=== PATIENT | male | born 1990 | race Caucasian/White ===

== ENCOUNTER 2021-06-19 02:13 | Emergency (ER) | payer BC, MEDICAID ==
[2021-06-19] MEDS ORDERED: Sodium Chloride 0.9% 1,000 ML IV ONE (02:24)
--- NOTE | 2021-06-19 02:29 | EDM.PDOC ---
ED HPI GENERAL MEDICAL PROBLEM - General Chief Complaint: Trauma Stated Complaint: [facility] Time Seen by Provider: 06/19/21 02:13 Source of Information: Reports: Patient, EMS History Limitations: Reports: Intoxication - History of Present Illness INITIAL COMMENTS - FREE TEXT/NARRATIVE: A trauma alert was called for this patient. Mr. Russell is a very pleasant 31-year-old gentleman who is now brought to the ED by EMS after he was drinking excessively for much of the night, then fell off of a third story balcony onto grass around 01:40 this morning. The patient states that he remembers falling and landing, and does not believe that he was knocked unconscious. He immediately had pain in his lower back and pelvis. He had reported to EMS that the pain radiated down both of his lower extremities, more on the left than the right, but he denies that to me. He denies having any tingling or numbness, anywhere. EMS placed him on a backboard, placed on IV, and gave him 1 mg of IV Dilaudid en route to the ED. Here in the ED, the patient's initial BP was found low at 65/46, but soon yaneth to 116/77, without treatment. He is afebrile, saturating 100% on room air. If not moved, he appears to be relatively comfortable, although he complained bitterly of pain when logrolled to the left to get him off the backboard. The patient states that he tested positive for the SARS-CoV-2 virus on 06/04/2021. He reports that he had minimal symptoms. He denies having a recent fever, chills, sore throat, ear pain, nasal or sinus congestion, cough, dyspnea, chest pain, palpitations, nausea, vomiting, constipation, diarrhea, abdominal pain, urinary symptoms, recent weight gain or weight loss, recent bloody bowel movements or black bowel movements, recent joint aches, headaches, or rashes. The patient's PCP is Dr. Dion Morel. His medical marijuana card is per Dr. Mario Hewitt. He has not received a COVID vaccination. 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 [No Known Home Meds] 06/19/21 [History] Past Medical History Gastrointestinal History: Reports: GERD Psychiatric History: Reports: ADHD (untreated), Bipolar (untreated), OCD (untreated), PTSD (untreated) Endocrine/Metabolic History: Reports: Hypothyroidism (resolved), Obesity/BMI 30+ - Past Surgical History HEENT Surgical History: Reports: Tonsillectomy GI Surgical History: Reports: Appendectomy Social & Family History - Tobacco Use Years of Tobacco use: 13 Packs/Tins Daily: 1 Tobacco Use Comment: Started smoking 2007 - Alcohol Use Alcohol Use History: Yes Alcohol Use Frequency: Socially (occasionally to excess) - Recreational Drug Use Recreational Drug Use: Yes Drug Use in Last 12 Months: Yes Recreational Drug Type: Reports: Cocaine (last snorted January 2021), LSD (Acid) (last took May 2021), Marijuana/Hashish (smokes daily) - Living Situation & Occupation Living situation: Reports: , with Spouse Occupation: Employed ([employer]) Review of Systems - Review of Systems Review Of Systems: Comprehensive ROS is negative, except as noted in HPI. ED EXAM, GENERAL - Physical Exam Exam: See Below Exam Limited By: No Limitations General Appearance: Alert, WD/WN, Mild Distress (Mild discomfort if kept still) Eye Exam: Bilateral Eye: EOMI, Normal Inspection Ears: Normal External Exam, Hearing Grossly Normal Nose: Normal Inspection Throat/Mouth: Normal Inspection, Normal Lips, Normal Voice, No Airway Compromise Head: Atraumatic, Normocephalic Neck: Normal Inspection, Supple, Non-Tender, Full Range of Motion Respiratory/Chest: No Respiratory Distress, Lungs Clear, Normal Breath Sounds, No Accessory Muscle Use, Chest Non-Tender. No: Decreased Breath Sounds, Crackles, Rhonchi, Wheezing, Stridor, Prolonged Expiration Cardiovascular: Normal Peripheral Pulses, Regular Rate, Rhythm, No Edema, No Gallop, No JVD, No Murmur, No Rub Peripheral Pulses: 3+: Radial (L), Radial (R), Femoral (L), Femoral (R), Posterior Tibial (L), Posterior Tibial (R), Dorsalis Pedis (L), Dorsalis Pedis (R) GI/Abdominal: Soft, No Organomegaly, No Distention, No Abnormal Bruit, No Mass, Tender (across the lower abdomen, nontender elsewhere), Abnormal Bowel Sounds (diminished), Other (The patient complains of exquisite pain with palpation or compression of the pelvis) Back Exam: Other (No visible or palpable abnormalities to palpation of the spine when the patient was logrolled to the left, however, he complained of tenderness to palpation of the lower lumbar/sacral spine) Extremities: Normal Inspection, Normal Range of Motion, Non-Tender (including the bilateral thighs), No Pedal Edema, Normal Capillary Refill Neurological: Alert, Oriented, CN II-XII Intact, Normal Cognition, No Motor/Sensory Deficits Psychiatric: Normal Affect Skin Exam: Warm, Dry, Intact, Normal Color, No Rash #1 Interpretation EKG Date: 06/19/21 Time: 02:47 Rhythm: NSR Rate (Beats/Min): 98 [place]: Normal P-Wave: Present QRS: Normal ST-T: Normal QT: Normal Comparison: NA - No Prior EKG Course - Vital Signs Last Recorded V/S: Last Vital Signs Temp 35.8 C L 06/19/21 02:22 Pulse 106 H 06/19/21 03:35 Resp 18 06/19/21 03:35 BP 104/52 L 06/19/21 03:35 Pulse Ox 99 06/19/21 03:35 - Orders/Labs/Meds Orders: Active Orders 24 hr Category Date Time Status Insert Taylor Catheter [Insert Urinary Catheter] [OM.PC] Care 06/19/21 03:15 Ordered Q24H Urinary Catheter Assessment [RC] ASDIRECTED Care 06/19/21 03:02 Active Cervical Spine wo Cont [CT] Stat Exams 06/19/21 02:21 Taken Chest Abdomen Pelvis w Cont [CT] Stat Exams 06/19/21 02:21 Taken Femur Min 1V Lt [CR] Stat Exams 06/19/21 03:11 Taken Femur Min 1V Rt [CR] Routine Exams 06/19/21 Taken Head wo Cont [CT] Stat Exams 06/19/21 02:21 Taken Sodium Chloride 0.9% [Normal Saline] 1,000 ml Med 06/19/21 02:24 Active IV ONETIME Medication Orders Sodium Chloride (Normal Saline) 1,000 mls @ 125 mls/hr IV ONETIME ONE Stop: 06/19/21 10:23 Last Admin: 06/19/21 03:05 Dose: 125 mls/hr Documented by: ADELITA Labs: Laboratory Tests 06/19/21 06/19/21 06/19/21 Range/Units 02:25 02:25 02:25 WBC 14.17 H (4.23-9.07) K/mm3 RBC 4.92 (4.63-6.08) M/mm3 Hgb 15.7 (13.7-17.5) gm/dl Hct 44.2 (40.1-51.0) % MCV 89.8 (79.0-92.2) fl MCH 31.9 (25.7-32.2) pg MCHC 35.5 (32.2-35.5) g/dl RDW Std Deviation 42.5 (35.1-43.9) fL Plt Count 266 (163-337) K/mm3 MPV 9.8 (9.4-12.3) fl Neutrophils % (Manual) 69 H (40-60) % Band Neutrophils % 2 (0-10) % Lymphocytes % (Manual) 26 (20-40) % Atypical Lymphs % 0 % Monocytes % (Manual) 3 (2-10) % Eosinophils % (Manual) 0 L (0.8-7.0) % Basophils % (Manual) 0 L (0.2-1.2) Platelet Estimate Adequate RBC Morph Comment Normal PT 9.9 (9.7-12.0) SECONDS INR < 0.93 APTT 22.1 (21.7-31.4) SECONDS Sodium 137 (136-145) mEq/L Potassium 3.3 L (3.5-5.1) mEq/L Chloride 100 (98-107) mEq/L Carbon Dioxide 22 (21-32) mEq/L Anion Gap 18.3 H (5-15) BUN 9 (7-18) mg/dL Creatinine 1.7 H (0.7-1.3) mg/dL Est Cr Clr Drug Dosing 65.60 mL/min Estimated GFR (MDRD) 48 (>60) mL/min BUN/Creatinine Ratio 5.3 L (14-18) Glucose 123 H (70-99) mg/dL Calcium 8.3 L (8.5-10.1) mg/dL Total Bilirubin 0.5 (0.2-1.0) mg/dL AST 95 H (15-37) U/L ALT 115 H (16-63) U/L Alkaline Phosphatase 68 (46-116) U/L Creatine Kinase (39-308) U/L Total Protein 7.8 (6.4-8.2) g/dl Albumin 3.7 (3.4-5.0) g/dl Globulin 4.1 gm/dL Albumin/Globulin Ratio 0.9 L (1-2) Urine Color (Yellow) Urine Appearance (Clear) Urine pH (5.0-8.0) Ur Specific [place] (1.005-1.030) Urine Protein (Negative) Urine Glucose (UA) (Negative) Urine Ketones (Negative) Urine Occult Blood (Negative) Urine Nitrite (Negative) Urine Bilirubin (Negative) Urine Urobilinogen (0.2-1.0) Ur Leukocyte Esterase (Negative) Urine RBC (0-5) /hpf Urine WBC (0-5) /hpf Ur Squamous Epith Cells (0-5) /hpf Amorphous Sediment (NOT SEEN) /hpf Urine Bacteria (FEW) /hpf Urine Mucus (FEW) /hpf Urine Opiates Screen (WTDWYS=895) Ur Buprenorphine Scrn (CUTOFF=10) Ur Oxycodone Screen (SFS0XZ=624) Urine Methadone Screen (QZV2OF=112) Ur Propoxyphene Screen (SJTRCY=275) Ur Barbiturates Screen (TEJSVI=699) Ur Tricyclics Screen (KVWXBY=426) Ur Phencyclidine Scrn (CUTOFF=25) Ur Amphetamine Screen (CYTDHS=870) U Methamphetamines Scrn (KZHPNP=223) U Benzodiazepines Scrn (ISRRLV=751) U Cocaine Metab Screen (WNOETJ=127) U Marijuana (THC) Screen (CUTOFF=50) Ethyl Alcohol 0.16 (0.00) gm% SARS-CoV-2 RNA (RADHA) (NEGATIVE) 06/19/21 06/19/21 06/19/21 Range/Units 02:25 03:00 03:00 WBC (4.23-9.07) K/mm3 RBC (4.63-6.08) M/mm3 Hgb (13.7-17.5) gm/dl Hct (40.1-51.0) % MCV (79.0-92.2) fl MCH (25.7-32.2) pg MCHC (32.2-35.5) g/dl RDW Std Deviation (35.1-43.9) fL Plt Count (163-337) K/mm3 MPV (9.4-12.3) fl Neutrophils % (Manual) (40-60) % Band Neutrophils % (0-10) % Lymphocytes % (Manual) (20-40) % Atypical Lymphs % % Monocytes % (Manual) (2-10) % Eosinophils % (Manual) (0.8-7.0) % Basophils % (Manual) (0.2-1.2) Platelet Estimate RBC Morph Comment PT (9.7-12.0) SECONDS INR APTT (21.7-31.4) SECONDS Sodium (136-145) mEq/L Potassium (3.5-5.1) mEq/L Chloride (98-107) mEq/L Carbon Dioxide (21-32) mEq/L Anion Gap (5-15) BUN (7-18) mg/dL Creatinine (0.7-1.3) mg/dL Est Cr Clr Drug Dosing mL/min Estimated GFR (MDRD) (>60) mL/min BUN/Creatinine Ratio (14-18) Glucose (70-99) mg/dL Calcium (8.5-10.1) mg/dL Total Bilirubin (0.2-1.0) mg/dL AST (15-37) U/L ALT (16-63) U/L Alkaline Phosphatase (46-116) U/L Creatine Kinase 1151 H (39-308) U/L Total Protein (6.4-8.2) g/dl Albumin (3.4-5.0) g/dl Globulin gm/dL Albumin/Globulin Ratio (1-2) Urine Color Yellow (Yellow) Urine Appearance Slt cloudy H (Clear) Urine pH 7.0 (5.0-8.0) Ur Specific [place] 1.015 (1.005-1.030) Urine Protein 2+ H (Negative) Urine Glucose (UA) Negative (Negative) Urine Ketones Negative (Negative) Urine Occult Blood 3+ H (Negative) Urine Nitrite Negative (Negative) Urine Bilirubin Negative (Negative) Urine Urobilinogen 0.2 (0.2-1.0) Ur Leukocyte Esterase Negative (Negative) Urine RBC 5-10 H (0-5) /hpf Urine WBC 0-5 (0-5) /hpf Ur Squamous Epith Cells 0-5 (0-5) /hpf Amorphous Sediment Rare H (NOT SEEN) /hpf Urine Bacteria Few (FEW) /hpf Urine Mucus Rare (FEW) /hpf Urine Opiates Screen Negative (HYWSRV=976) Ur Buprenorphine Scrn Negative (CUTOFF=10) Ur Oxycodone Screen Negative (ZXW8OA=185) Urine Methadone Screen Negative (ODU2WI=467) Ur Propoxyphene Screen Negative (VDNOYZ=399) Ur Barbiturates Screen Negative (WRHNBQ=882) Ur Tricyclics Screen Negative (TUSOAJ=762) Ur Phencyclidine Scrn Negative (CUTOFF=25) Ur Amphetamine Screen Negative (OGBXCR=910) U Methamphetamines Scrn Negative (NANUCN=485) U Benzodiazepines Scrn Negative (BMZRUJ=538) U Cocaine Metab Screen Negative (OTPATA=069) U Marijuana (THC) Screen Negative (CUTOFF=50) Ethyl Alcohol (0.00) gm% SARS-CoV-2 RNA (RADHA) (NEGATIVE) 06/19/21 Range/Units 03:30 WBC (4.23-9.07) K/mm3 RBC (4.63-6.08) M/mm3 Hgb (13.7-17.5) gm/dl Hct (40.1-51.0) % MCV (79.0-92.2) fl MCH (25.7-32.2) pg MCHC (32.2-35.5) g/dl RDW Std Deviation (35.1-43.9) fL Plt Count (163-337) K/mm3 MPV (9.4-12.3) fl Neutrophils % (Manual) (40-60) % Band Neutrophils % (0-10) % Lymphocytes % (Manual) (20-40) % Atypical Lymphs % % Monocytes % (Manual) (2-10) % Eosinophils % (Manual) (0.8-7.0) % Basophils % (Manual) (0.2-1.2) Platelet Estimate RBC Morph Comment PT (9.7-12.0) SECONDS INR APTT (21.7-31.4) SECONDS Sodium (136-145) mEq/L Potassium (3.5-5.1) mEq/L Chloride (98-107) mEq/L Carbon Dioxide (21-32) mEq/L Anion Gap (5-15) BUN (7-18) mg/dL Creatinine (0.7-1.3) mg/dL Est Cr Clr Drug Dosing mL/min Estimated GFR (MDRD) (>60) mL/min BUN/Creatinine Ratio (14-18) Glucose (70-99) mg/dL Calcium (8.5-10.1) mg/dL Total Bilirubin (0.2-1.0) mg/dL AST (15-37) U/L ALT (16-63) U/L Alkaline Phosphatase (46-116) U/L Creatine Kinase (39-308) U/L Total Protein (6.4-8.2) g/dl Albumin (3.4-5.0) g/dl Globulin gm/dL Albumin/Globulin Ratio (1-2) Urine Color (Yellow) Urine Appearance (Clear) Urine pH (5.0-8.0) Ur Specific [place] (1.005-1.030) Urine Protein (Negative) Urine Glucose (UA) (Negative) Urine Ketones (Negative) Urine Occult Blood (Negative) Urine Nitrite (Negative) Urine Bilirubin (Negative) Urine Urobilinogen (0.2-1.0) Ur Leukocyte Esterase (Negative) Urine RBC (0-5) /hpf Urine WBC (0-5) /hpf Ur Squamous Epith Cells (0-5) /hpf Amorphous Sediment (NOT SEEN) /hpf Urine Bacteria (FEW) /hpf Urine Mucus (FEW) /hpf Urine Opiates Screen (JXTOXN=587) Ur Buprenorphine Scrn (CUTOFF=10) Ur Oxycodone Screen (ZWW9BP=621) Urine Methadone Screen (IWJ3FT=564) Ur Propoxyphene Screen (WPLHGO=985) Ur Barbiturates Screen (WJJNQR=863) Ur Tricyclics Screen (MIZLIQ=050) Ur Phencyclidine Scrn (CUTOFF=25) Ur Amphetamine Screen (UIIPKC=009) U Methamphetamines Scrn (AXOTSA=024) U Benzodiazepines Scrn (NCOSGS=082) U Cocaine Metab Screen (REVXJY=764) U Marijuana (THC) Screen (CUTOFF=50) Ethyl Alcohol (0.00) gm% SARS-CoV-2 RNA (RADHA) Positive H (NEGATIVE) Meds: Medications Generic Name Dose Route Start Last Admin Trade Name Freq PRN Reason Stop Dose Admin Sodium Chloride 1,000 mls @ 125 mls/hr 06/19/21 02:24 06/19/21 03:05 Normal Saline IV 06/19/21 10:23 125 mls/hr ONETIME ONE Administration Discontinued Medications Generic Name Dose Route Start Last Admin Trade Name [place] PRN Reason Stop Dose Admin Hydromorphone HCl 1 mg 06/19/21 02:54 06/19/21 03:05 Hydromorphone 1 Mg/Ml Syringe IVPUSH 06/19/21 02:55 1 mg ONETIME ONE Administration Tranexamic Acid 1,000 mg/ 110 mls @ 400 mls/hr 06/19/21 03:43 06/19/21 04:03 Sodium Chloride IV 06/19/21 03:59 593 mls/hr ONETIME STA Administration Tranexamic Acid 1,000 mg/ 110 mls @ 400 mls/hr 06/19/21 03:44 06/19/21 04:16 Sodium Chloride IV 06/19/21 04:00 400 mls/hr ONETIME STA Administration Ondansetron HCl 4 mg 06/19/21 02:54 06/19/21 03:05 Ondansetron 4 Mg/2 Ml Sdv IVPUSH 06/19/21 02:55 4 mg ONETIME ONE Administration - Re-Assessments/Exams Free Text/Narrative Re-Assessment/Exam: 06/19/21 02:27 Given the nature of the patient's fall, I have ordered a CT of the head and cervical spine without contrast. I have also ordered a CT of the chest, abdomen, and pelvis with IV contrast, primarily to evaluate his lumbar spine and pelvis. I have additionally ordered several blood tests, a urinalysis, a urine drug screen, and an ECG. In case the patient requires admission or transfer, I have also ordered a swab for the SARS-CoV-2 virus. In the meantime, the patient will be given some IV fluid. 06/19/21 02:47 Notified by the public address technician that there is an obvious pubic symphysis separation, and left side SI joint separation, with a possible pubic rami fracture. I have ordered a pelvic binder. 06/19/21 03:[address] Pepe at 02:58. He agreed with the pelvic binder, but did not have any other recommendations at this time. The patient will need to be transferred to a facility that can deal with pelvic fractures. I ordered a Taylor catheter to be placed. 06/19/21 03:12 CT of the cervical spine without contrast is read by [facility] as "No acute findings." 06/19/21 03:25 CT of the head without contrast is read by [facility] as: 1. No acute intracranial abnormality. 2. Sinus disease likely chronic. CT of the chest with IV contrast is read by [facility] as: 1. No acute findings. CT of the abdomen and pelvis with IV contrast is read by [facility] as: 1. Fractures of the left sacrum and the left superior and inferior pubic rami. Diastasis of the pubic symphysis and the left sacroiliac joint. Adjacent hematomas. 2. Right inguinal hematoma. 3. Grade 2 splenic laceration. The patient's CBC is remarkable for leukocytosis of 14.17 with 2% bandemia, and the remainder of his CBC being unremarkable. His CMP is remarkable for slight hypokalemia 3.3, and a Cr elevated at 1.7, but with a BUN normal at 9. He has slight hyperglycemia of 123. His AST/ALT are mo destly elevated at 95/115, respectively, with the remainder of his CMP being unremarkable. His CPK is elevated at 1151. His coags are within normal limits. His EtOH level is elevated at 0.16. His urinalysis is unremarkable. His urine drug screen is negative. His swab for the SARS-CoV-2 virus is pending. 06/19/21 03:[address] images were pushed to [facility] at 03:30. Case discussed with Jon at [facility] at 03:30. Case then discussed with Dr. Peterson, Emergency Physician at [facility], at 03:35. He recommended that we treat the patient with tranexamic acid. He accepted the patient for transfer to their emergency department. The patient will need to go by air. We are currently checking the weather. 06/19/21 03:53 Notified that the patient will be going by fixed wing, and that they will be here around 04:40. 06/19/21 03:56 AP view of the right femur appears to be grossly normal, with no fractures or dislocations identified. Formal read per the Radiologist pending. AP view of the left femur appears to be grossly normal, with no fractures or dislocations identified. Formal read per the Radiologist pending. X-ray images of the bilateral femurs pushed to [facility] at 03:56. 06/19/21 05:20 The patient's swab for the SARS-CoV-2 virus returned positive. Departure - Departure Time of Disposition: 03:47 Disposition: DC/Tfer to Acute Hospital 02 Condition: Fair Clinical Impression: Pelvic fracture, Splenic laceration, Alcohol intoxication, COVID-19 - Discharge Information *PRESCRIPTION DRUG MONITORING PROGRAM REVIEWED*: Not Applicable *COPY OF PRESCRIPTION DRUG MONITORING REPORT IN PATIENT NOAH: Not Applicable Referrals: Dion Morel MD [Primary Care Provider] - Mario Hewitt DO [Physician] - Forms: ED Department Discharge Sepsis Event Note (ED) - Evaluation Sepsis Screening Result: No Definite Risk - Focused Exam Vital Signs: Vital Signs Temp Pulse Resp BP Pulse Ox 06/19/21 03:35 106 H 18 104/52 L 99 06/19/21 02:22 35.8 C L 92 20 65/46 L 100 - My Orders Last 24 Hours: My Active Orders 06/19/21 Femur Min 1V Rt [CR] Routine 06/19/21 02:21 Cervical Spine wo Cont [CT] Stat Chest Abdomen Pelvis w Cont [CT] Stat Head wo Cont [CT] Stat 06/19/21 02:24 Sodium Chloride 0.9% [Normal Saline] 1,000 ml IV ONETIME 06/19/21 03:02 Urinary Catheter Assessment [RC] ASDIRECTED 06/19/21 03:11 Femur Min 1V Lt [CR] Stat 06/19/21 03:15 Insert Taylor Catheter [Insert Urinary Catheter] [OM.PC] Q24H - Assessment/Plan Last 24 Hours: My Active Orders 06/19/21 Femur Min 1V Rt [CR] Routine 06/19/21 02:21 Cervical Spine wo Cont [CT] Stat Chest Abdomen Pelvis w Cont [CT] Stat Head wo Cont [CT] Stat 06/19/21 02:24 Sodium Chloride 0.9% [Normal Saline] 1,000 ml IV ONETIME 06/19/21 03:02 Urinary Catheter Assessment [RC] ASDIRECTED 06/19/21 03:11 Femur Min 1V Lt [CR] Stat 06/19/21 03:15 Insert Taylor Catheter [Insert Urinary Catheter] [OM.PC] Q24H
[2021-06-19] MEDS ORDERED: Ondansetron 4 MG/2 ML SDV IVPUSH ONE (02:54)
[2021-06-19] MEDS ORDERED: HYDROmorphone 1 MG/ML Syringe IVPUSH ONE (02:54)
[2021-06-19] MEDS ORDERED: Tranexamic Acid 1,000 MG in Sodium Chloride 0.9% 100 ML IV STA ×2 (03:43→03:44)
--- NOTE | 2021-06-19 07:11 | CT ---
CT cervical spine Technique: Multiple axial sections were obtained from above C1 inferiorly to the T2 level. Reconstructed coronal and sagittal images were obtained. Comparison: No prior cervical spine imaging is available. Findings: Mild disc space narrowing is noted at C4-5. Vertebral body heights are maintained. Minimal anterior endplate osteophytes are seen mostly at C4-5. No central canal stenosis or neural foraminal stenosis is seen. No fracture is noted. No abnormal subluxation is seen. Impression: 1. Minimal degenerative change. 2. Nothing acute is appreciated on CT study of the cervical spine. Diagnostic code #2 I agree with preliminary report from [facility], finalized on 06/19/21, 4:06 AM CDT, code 1
--- NOTE | 2021-06-19 07:25 | CR ---
Left femur: AP view of the left femur was obtained. Comparison: No prior femur study. Joint space of the left hip and left knee are maintained on this single view. No fracture or other bony abnormality is appreciated. Impression: 1. No abnormality is seen on AP left femur study. Diagnostic code #1
--- NOTE | 2021-06-19 07:26 | CR ---
Right femur: AP view of the right femur was obtained. Comparison: No prior femur studies available. Slight widening of the pubic symphysis is seen. Joint space within the right hip and right knee are maintained on this single view. No fracture or other bony abnormality is appreciated. Soft tissue swelling is noted. Impression: 1. Widening of the pubic symphysis. 2. Soft tissue swelling. 3. Nothing acute is otherwise seen on 1-view right femur study. Diagnostic code #3
--- NOTE | 2021-06-19 07:34 | CT ---
Head CT Technique: Multiple axial sections through the brain were obtained. Intravenous contrast was not utilized. Reconstructed coronal and sagittal images were obtained. Comparison: No prior cervical spine imaging is available. Findings: Ventricles along with basal cisterns and sulci over the convexities are within normal limits for the patient's age. No abnormal parenchymal densities are seen. No evidence of intracranial hemorrhage is seen. No midline shift or mass-effect is appreciated. Bone window settings were reviewed. Moderate mucosal thickening is seen within the ethmoid sinuses extending into the frontal sinuses and sphenoid sinus which is most likely chronic. Visualized mastoid sinuses are clear. No acute calvarial abnormality is appreciated. Impression: 1. Sinus findings which are most likely chronic. 2. No acute intracranial abnormality is appreciated. Diagnostic code #2 I agree with preliminary report from [facility], finalized on 06/19/21, 4:17 AM CDT, code 1
--- NOTE | 2021-06-19 07:48 | CT ---
CT chest Technique: Multiple axial sections were obtained from above the lung apices inferiorly through the lung bases. Intravenous contrast was utilized. Reconstructed coronal and sagittal images were obtained. Comparison: No prior chest imaging is available. Findings: No pericardial thickening is seen. Thoracic aorta shows no aneurysm. No mediastinal hematoma or adenopathy is seen. No axillary adenopathy is identified. Lung window settings were reviewed. No acute parenchymal process is seen. Bone window settings were reviewed, no acute osseous finding is appreciated. Impression: 1. No abnormality is identified on CT study of the chest. Diagnostic code #1 I agree with preliminary report from [facility], finalized on 06/19/21, 4:22 AM CDT, code 1 CT abdomen and pelvis Technique: Multiple axial sections were obtained from above the dome of the diaphragm inferiorly through the pubic symphysis. Intravenous contrast was not utilized. Delayed images were also obtained through the abdomen and pelvis. No oral contrast as been given. Reconstructed coronal and sagittal images were obtained. Comparison: No prior abdomen and pevis imaging is available. Findings: Liver contains no focal abnormality. Low density area is seen within the spleen compatible with splenic hematoma which measures approximately 3.3 x 2.3 cm. No significant sub-capsular hematoma is seen. Splenic injury is grade 2. Adrenal glands show no nodule. Kidneys show symmetric contrast enhancement with no hydronephrosis or mass. Gallbladder contains no calcified gallstones. Small area of accessory splenic tissue is noted anteriorly. Pancreas appears within normal limits. Abdominal aorta shows no aneurysm. No retroperitoneal adenopathy or mesenteric abnormalities are seen. No pelvic mass or adenopathy is appreciated. Surgical material is seen off the tip of the cecum presumably from prior appendectomy. Delayed images show contrast excretion from both kidneys into nondilated ureters as well as minimal contrast within the bladder. Bone window settings were reviewed which show widening of the pubic symphysis as well as slight offset compatible with ligamentous injury. Normal soft tissue density is seen around the pubic symphysis compatible with hematoma. Hematoma is also noted within the right inguinal region. There is widening of the left sacroiliac joint compatible with soft tissue injury. Very minimal fracture of the left sacroiliac joint is also noted. No additional osseous abnormality is appreciated. Impression: 1. Significant bony pelvis injury with widening of the pubic symphysis as well as widening within the left sacroiliac joint which is compatible with soft tissue injury. Minimal fracture within the left sacroiliac joint is also noted. Soft tissue hematoma is seen around the pubic symphysis and within the right inguinal region. 2. Grade 2 injury within the spleen. 3. No additional abnormality is identified on CT study of the abdomen and pelvis. Diagnostic code #5 I agree with preliminary report from [facility], finalized on 06/19/21, 4:22 AM CDT, code 1
== END 2021-06-19 06:30 ==
LOC: JD.ED 02:13
DX: S32.512A Fracture of superior rim of left pubis, initial encounter for closed fracture (principal); S32.10XA Unspecified fracture of sacrum, initial encounter for closed fracture; S36.039A Unspecified laceration of spleen, initial encounter; U07.1 COVID-19; E66.9 Obesity, unspecified; Z68.35 Body mass index [BMI] 35.0-35.9, adult; Z72.0 Tobacco use; R79.89 Other specified abnormal findings of blood chemistry; W17.89XA Other fall from one level to another, initial encounter
CPT/HCPCS: 36415; 51702; 70450; 70450-26; 71260; 71260-26; 72125; 72125-26; 73551-26-LT; 73551-26-RT; 73551-LT; 73551-RT; 74177; 74177-26; 80053; 80306; 80307; 81001; 82550; 85007; 85027; 85610; 85730; 93005; 96365; 96375; 99285-25; J1170; J2405; J7030; U0002